=== PATIENT | male | born 1955 | race Caucasian/White ===

== ENCOUNTER 2016-06-21 17:05 | Emergency (ER) | payer OTHER ==
--- NOTE | 2016-06-21 17:46 | DIAGNOSTIC IMAGING REPORT ---
PROCEDURE: XR CHEST 1 VIEW INDICATION: Chest pain. TECHNIQUE: Portable AP view (1730 hours). COMPARISON: None. FINDINGS: Allowing for overlying wires and electrodes and lordotic positioning,, lungs are clear. Heart and mediastinum are normal. Mild degenerative changes of the thoracic spine. IMPRESSION: 1. Negative chest.
--- NOTE | 2016-06-21 18:45 | ED ORDER SUMMARY ---
..... Patient: RANDI SCHAFER OrderSheet [facility] VisitID: [id number] [place] [address] 61y, M Registration Date/Time: 06/21/2016 ORDER SHEET Weight: 67.1 kg (stated) Allergies: None GENERAL ORDERS: Chest 1V Urgent (17:06/21/2016 Hyun Ruiz) (Ack 17:35 Mindy) (17:59 KKnebel R.N.) Technician Helper Instrument (Continuous) (CP) (:06/21/2016 Hyun Ruiz) (17:58 KKnebel R.N.) CBC w Diff Urgent (:06/21/2016 Hyun Ruiz) (Ack 17:35 Mindy) (17:58 KKnebel R.N.) CMP Urgent (:06/21/2016 Hyun Ruiz) (Ack 17:35 Midny) (17:58 KKnebel R.N.) UA-Culture if indicated Urgent (:06/21/2016 Hyun Ruiz) (Ack 17:35 Mindy) (19:53 KKnebel R.N.) PT with INR Urgent (:06/21/2016 Hyun Ruiz) (Ack 17:35 Mindy) (17:59 KKnebel R.N.) D-Dimer Urgent (:06/21/2016 Hyun Ruiz) (Ack 17:35 Mindy) (17:59 KKnebel R.N.) Troponin-I Urgent (:06/21/2016 Hyun Ruiz) (Ack 17:35 Mindy) (17:59 KKnebel R.N.) BNP Urgent (:06/21/2016 Hyun Ruiz) (Ack 17:35 Mindy) (17:59 KKnebel R.N.) Urine Drug Screen Urgent (:06/21/2016 Hyun Ruiz) (Ack 17:35 Mindy) (19:53 KKnebel R.N.) Pulse oximeter (:06/21/2016 Hyun Ruiz) (17:58 Vanessa R.N.) MEDICATION ORDERS: Azithromycin PO 500 mg (NOW) (18:43 06/21/2016 Hyun Ruiz) (18:56 Vanessa R.N.) IV FLUIDS: Morphine IV 4 mg (HIGH ALERT MEDICATION, NOW) (17:25 06/21/2016 Hyun Ruiz) (17:58 Vanessa Mercado.N.) IV Saline Lock (17:06/21/2016 Hyun Ruiz) (17:55 Vanessa R.N.) ORDER SHEET NOTES: [Electronically signed by Heidi Carballo R.N. (19:54 06/21/2016)] [Electronically signed by Vito Puga Dr. (10:23 06/22/2016)] [Electronically locked/signed by Heidi Carballo R.N. (19:54 06/21/2016)]
--- NOTE | 2016-06-21 18:45 | ED NURSING NOTES ---
Clinical Report - Nurses [facility] [address] [place] [address] 06/21/2016 17:06 Patient: RANDI SCHAFER TRIAGE Triage time 17:14 Jun 21 2016. Acuity: LEVEL 2. Chief Complaint: CHEST PAIN. Alert. No acute distress. --17:20 Heidi Carballo R.N. 17:14 06/21/16. BP: 125/44. HR: 116. RR: 14. O2 saturation: 92%. Temp: 98.8 F. Pain level now: 09/26. --17:20 Heidi Carballo R.N. Weight: 67.1 kg stated. Height/Length: 72 inches Per Patient. BMI: 20.1. --17:23 Heidi Carballo R.N. Medications Albuterol Sulfate ER Oral. Combivent Respimat Inhalation. --17:16 Heidi Carballo R.N. Nebulizers. --17:16 Heidi Carballo R.N. INHALER . --17:16 Heidi Carballo R.N. Allergies None. --17:15 Heidi Carballo R.N. History Arrived by private vehicle. Historian: patient. Accompanied by family and (sister). Onset. (about 6 days ago). He has had difficulty breathing. PAST MEDICAL HX: Lung disease. Immunizations: up-to-date. SOCIAL HX: Current every day heavy tobacco smoker (cigarette)- less than 1 pack per day. Does not smoke more than 2 packs per day. No alcohol use or drug use. No infectious disease exposure. SELF HARM ASSESSMENT: A self harm assessment was performed. The patient answered "no" to the question "Do you have thoughts of harming or killing yourself?". FALL RISK ASSESSMENT: Fall risk assessment completed. No fall risk identified. NUTRITIONAL RISK ASSESSMENT: The nutritional risk assessment revealed no deficiencies. FUNCTIONAL ASSESSMENT: Functional assessment: no impairments noted. LEARNING NEEDS ASSESSMENT: The learning needs assessment revealed no barriers. ABUSE ASSESSMENT: Abuse assessment: The patient was asked "Do you feel safe in your home?". SKIN INTEGRITY ASSESSMENT: Skin integrity risk assessment completed. No skin integrity risk identified. --17:20 Heidi Carballo R.N. PROBLEMS: COPD - Chronic Obstructive Pulmonary Disease. Asthma. RSD. --17:17 Heidi Carballo R.N. ADDITIONAL SURGERIES: Hip Surgery. --17:17 Heidi Carballo R.N. Ulner. --17:18 Heidi Carballo R.N. Interventions ID band on patient. To room. --17:20 Heidi Carballo R.N. PHYSICAL ASSESSMENT To room via wheelchair. GENERAL / NEURO / PSYCH: Alert. Oriented X 4. Appears in pain. RESPIRATORY: Respirations not labored. CVS: Capillary refill is greater than 2 seconds. GI / : Abdomen soft. EXTREMITIES: Lower extremity edema. SKIN: Skin is warm and dry. --17:21 Heidi Carballo R.N. NURSING PROGRESS NOTES Monitoring of patient in place. Patient gowned. Head of bed elevated. Two patient identifiers checked. Call light placed in reach. Side rails up x 1. Bed placed in lowest position. Brakes of bed on. --17:24 Heidi Carballo R.N. 17:25 06/21/2016 Site #1 started via IV in the right antecubital space with an 20g angiocath, with aseptic technique and good blood return; one attempt. Blood drawn: rainbow set. Labeled in the presence of the patient and sent to the lab. Saline lock flushed with 10 mL saline. --17:25 Heidi Carballo R.N. 17:58 06/21/2016 Morphine IVP 4 mg given over 2 minute(s) via site #1. Allergies verified, confirmed 5 rights and sedative warning given to the patient. IV patency established. IV site checked: no pain, redness, or swelling. IV flushed thoroughly pre- and post-medication administration. --17:58 Heidi Carballo R.N. 18:56 06/21/2016 Azithromycin PO Tablets 500 mg given. Allergies verified and confirmed 5 rights. --18:56 Heidi Carballo R.N. 19:22 06/21/16. ( pt unable to provide urine sample - MD RAMIREZ with discharging pt without it.). --19:52 Heidi Carballo R.N. 19:23 06/21/2016 Site #1 removed upon discharge. Bandage applied. --19:23 Heidi Carballo R.N. DISPOSITION / DISCHARGE Departure time: :Jun 21 2016. Condition at departure: improved. No learning barriers present. Discharge instructions provided and reviewed with the patient. Reviewed medication(s) side effects, precautions, dosing and course information. Reviewed referral to a primary care physician. Patient verbalized understanding. Written instructions provided in [place]. The patient was discharged home and accompanied by spouse. He left the Emergency Department ambulatory and via private vehicle. Family member driving (sister will be picking up pt.). --19:22 Heidi Carballo R.N. 19:17 06/21/16. BP: 105/42. HR: 98. RR: 16. O2 saturation: 92%. Pain level now: 11/27. --19:22 Heidi Carballo R.N. Locked/Released at 06/21/2016 19:54 by Heidi Carballo R.N.
--- NOTE | 2016-06-21 18:45 | ED ORDER SUMMARY ---
..... Patient: RANDI SCHAFER OrderSheet [facility] VisitID: [id number] [place] [address] 61y, M Registration Date/Time: 06/21/2016 ORDER SHEET Weight: 67.1 kg (stated) Allergies: None GENERAL ORDERS: Chest 1V Urgent (17:06/21/2016 Hyun Ruiz) (Ack 17:35 Mindy) (17:59 KKnebel R.N.) Director Of Managed Care (Continuous) (CP) (:06/21/2016 Hyun Ruiz) (17:58 KKnebel R.N.) CBC w Diff Urgent (:06/21/2016 Hyun Ruiz) (Ack 17:35 Mindy) (17:58 KKnebel R.N.) CMP Urgent (:06/21/2016 Hyun Ruiz) (Ack 17:35 Mindy) (17:58 KKnebel R.N.) UA-Culture if indicated Urgent (:06/21/2016 Hyun Ruiz) (Ack 17:35 Mindy) (19:53 KKnebel R.N.) PT with INR Urgent (:06/21/2016 Hyun Ruiz) (Ack 17:35 Mindy) (17:59 KKnebel R.N.) D-Dimer Urgent (:06/21/2016 Hyun Ruiz) (Ack 17:35 Mindy) (17:59 KKnebel R.N.) Troponin-I Urgent (:06/21/2016 Hyun Ruiz) (Ack 17:35 Mindy) (17:59 KKnebel R.N.) BNP Urgent (:06/21/2016 Hyun Ruiz) (Ack 17:35 Mindy) (17:59 KKnebel R.N.) Urine Drug Screen Urgent (:06/21/2016 Hyun Ruiz) (Ack 17:35 Mindy) (19:53 KKnebel R.N.) Pulse oximeter (:06/21/2016 Hyun Ruiz) (17:58 Vanessa R.N.) MEDICATION ORDERS: Azithromycin PO 500 mg (NOW) (18:43 06/21/2016 Hyun Ruiz) (18:56 Vanessa R.N.) IV FLUIDS: Morphine IV 4 mg (HIGH ALERT MEDICATION, NOW) (17:25 06/21/2016 Hyun Ruiz) (17:58 Vanessa Mercado.N.) IV Saline Lock (17:06/21/2016 Hyun Ruiz) (17:55 Vanessa R.N.) ORDER SHEET NOTES: [Electronically signed by Heidi Carballo R.N. (19:54 06/21/2016)] [Electronically signed by Vito Puga Dr. (10:23 06/22/2016)] [Electronically locked/signed by Heidi Carballo R.N. (19:54 06/21/2016)]
--- NOTE | 2016-06-21 18:45 | ED CLINICAL REPORT ---
Clinical Report - Physicians/Mid Levels [facility] [address] [place] [address] 06/21/2016 17:06 Patient: RANDI SCHAFER Time Seen: 1720. Arrived- By private vehicle. Historian- patient. HISTORY OF PRESENT ILLNESS Chief Complaint: CHEST PAIN. It is described as located in the central chest area. No radiation. This started past 4 days and is still present. It was abrupt in onset and has been constant but is not gone now. Onset during rest. At its maximum, severity described as moderate. Modifying factors- worsened by deep breaths. Relieved by rest. No nausea, vomiting, difficulty breathing or diaphoresis. (patient having a productive cough of green sputum. Patient reports increasing in pain with deep inspiration). No additional chest pain. Similar symptoms previously: None. REVIEW OF SYSTEMS No fever, chills or skin rash. All systems otherwise negative, except as recorded above. PAST HISTORY See nurses notes. Medications: INHALER . Nebulizers. Albuterol Sulfate ER Oral. Combivent Respimat Inhalation. Allergies: None. SOCIAL HISTORY Smoker- current status unknown. No alcohol use or drug use. No recent travel. Is a local resident. ADDITIONAL NOTES The nursing notes have been reviewed. PHYSICAL EXAM Vital Signs: 06/21/2016 17:14 BP: 125/44. HR: 116. RR: 14. O2 saturation: 92%. Temp: 98.8 F. Pain level now: 7/10. Blood pressure normal. Oxygen saturation normal. Appearance: Alert. Oriented X3. No acute distress. (full jiang harper. polite, cooperative, and nontoxic). Eyes: Pupils equal, round and reactive to light. Eyes normal inspection. ENT: Ears normal. Nose normal. Pharynx normal. Neck: Normal inspection. Neck supple. CVS: Normal heart rate and rhythm. Heart sounds normal. Pulses normal. Respiratory: No respiratory distress. Breath sounds normal. Chest nontender. Abdomen: Soft and nontender. Bowel sounds normal. No mass. Back: Normal external inspection. Skin: Skin warm and dry. Normal skin color. No rash. Normal skin turgor. Extremities: Extremities exhibit normal ROM. No lower extremity edema. LABS, X-RAYS, AND EKG EKG: No acute ischemia. Tachycardia. Sinus tachycardia. Normal P waves. Normal RYLIE. Normal QRS complex. Normal axis. Normal ST and T waves, QT and QTc. Sinus tachycardia. Prior EKG unavailable. The study has been interpreted contemporaneously. The study has been independently viewed by me. The EKG appears to be a good tracing. Chest X-ray: No acute disease. Normal heart size. Mediastinum normal. Great vessels normal. No infiltrate. Views: PA. The X-rays were independently viewed by me and interpreted by the radiologist. The X-rays were discussed with the radiologist (Via PACS). Laboratory Tests: CBC w Diff: (HILLARY: 06/21/2016 16:05) ( MsgRcvd 06/21/2016 17:33) Final results Test Result Flag Units (Reference) WHITE BLOOD COUNT 12.6 H K/uL (4.5-11.5) RED BLOOD COUNT 4.59 M/uL (4.50-5.90) HEMOGLOBIN 12.6 L gm/dL (13.5-17.5) HEMATOCRIT 38.3 L % (41.0-53.0) MEAN CELL VOLUME 83 fL (80-100) MEAN CORPUSCULAR HGB 28 pg (26-34) MEAN CORPUSCULAR HGB CONC 33 g/dL (31-37) RED CELL DISTRIBUTION WIDTH 14.7 % (11.6-14.8) PLATELET COUNT 221 K/uL (150-400) NEUTROPHIL % 72.5 % (50-75) LYMPH % 15.1 L % (25-40) MONO % 11.8 % (3-14) EOSINOPHIL % 0.2 % (0-4) BASOPHIL % 0.4 % (0-2) PT with INR: (HILLARY: 06/21/2016 16:05) ( MsgRcvd 06/21/2016 17:45) Final results Test Result Flag Units (Reference) INR 1.1 (0.8-1.2) Low Intensity Therapy: INR 1.5-2.0 PT range 18.5-23.1Mod.Intensity Therapy: INR 2.0-3.0 PT range 23.1-31.5High Intensity Therapy: INR 2.5-3.5 PT range 27.4-35.5High Intensity Therapy 2: INR 3.0-4.0 PT range 31.5-39.3 D-DIMER QUANTITATIVE 0.38 ug/mLFEU (0.27-0.52) The primary value of this quantitative assay relates toits negative predictive value (i.e. exclusion) of pulmonaryembolism/deep vein thrombosis/DIC.Elevated levels of d-dimer may also occur with:, age, cancer, inflammation, liver disease,post-op, infection, hematoma, coronary disease, peripheralarteriopathy, bleeding disorders and thrombolytic treatment.Results should be correlated with other clinical andradiological data.Testing Methodology: Latex Immunoassay BNP: (HILLARY: 06/21/2016 16:05) ( NmgRcvd 06/21/2016 17:55) Final results Test Result Flag Units (Reference) B-TYPE NATRIURETIC PEPTIDE 29.2 pg/ml (5-100) CMP: (HILLARY: 06/21/2016 16:05) ( MsgRcvd 06/21/2016 17:58) Final results Test Result Flag Units (Reference) GLUCOSE 149 H mg/dL (70-110) BUN 21 H mg/dL (7-18) CREATININE 0.9 mg/dL (0.6-1.3) Estimated GFR >60 mL/min Estimated GFR- >60 mL/min Note: Persistent reduction over 3 months in eGFR<60 mL/min/1.73 m2 defines CKD. Patients with eGFR values>=60 mL/min/1.73 m2 may also have CKD if evidence ofpersistent proteinuria. Additional information may be foundat www.kidney.org. SODIUM 135 L mmol/L (136-145) POTASSIUM 3.5 mmol/L (3.5-5.1) CHLORIDE 97 L mmol/L (98-107) CARBON DIOXIDE 30 mmol/L (21-32) CALCIUM 9.0 mg/dL (8.5-10.1) TOTAL PROTEIN 7.8 g/dL (6.4-8.2) ALBUMIN 3.6 g/dL (3.3-5.0) BILIRUBIN, TOTAL 0.5 mg/dL (0.0-1.0) ALKALINE PHOSPHATASE 110 U/L (46-116) AST (SGOT) 20 U/L (15-37) ALT (SGPT) 26 U/L (12-78) TROPONIN I <0.05 ng/mL (0.00-1.5) TROPONIN REFERENCE RANGE:<0.1 NEGATIVE0.1-1.5 INDETERMINANT>1.5 POSITIVE . PROGRESS AND PROCEDURES Course of Care: the patient is a pleasant 61-year-old male presenting for evaluation of chest pain and shortness of breath. The patient reports having a productive cough. Bronchitis versus pneumonia versus COPD versus acute myocardial infarction versus thoracic aortic dissection versus pulmonary embolism is a typeis at this time. Patient is resting in bed and in no acute distress. Patient reports that he is tachycardic be is having a breathing treatment earlier prior to arrival. Had a discussion with patient in regards to symptoms here in the emergency department. Patient reports that he has a history of heroin use for chronic pain but does not want this to be on his record. Medications and laboratory studies including chest x-ray and EKG have been ordered. Patient is agreeable to treatment plan. Labs or studies including d-dimer and troponin been ordered. Because of the patient's time course of his illness, do not feel patient needs a delta troponin. Single troponin would be sufficient given the patient's onset of pain further greater than 8 hours. If the patient's d-dimer is also noted to be normal, do not fill patient has pulmonary embolism or thoracic dissection. Patient's chest x-rays noted to have no acute infiltrates. Troponin is noted to be negative. The patient's d-dimer is also noted to be normal. Patient is sleeping and in no acute distress while here in the emergency department. because of the patient's negative workup, do not fill patient is admitted to the hospital. Feel the patient's symptoms are likely due to bronchitis given the patient's symptoms of upper respiratory tract findings as well as productive cough. Patient with history of smoking. Patient will likely benefit from course of antibiotics. Patient is agreeable to the treatment plan. Patient is not wheezing on examination while here in the emergency department and has declined offers of refills of his medication for his COPD as well as medications here for his breathing. Because the patient is not having any wheezing all here in the emergency department and as having good air movement throughout his lungs, do not feel patient would benefit from steroids and believe the risks outweigh the benefits at this time. Disposition: Discharged. Condition: good. CLINICAL IMPRESSION Atypical chest pain .12 lead EKG performed. (acute). Acute bacterial bronchitis. acute leukocytosis. INSTRUCTIONS Warnings: GENERAL WARNINGS: Return or contact your physician immediately if your condition worsens or changes unexpectedly, if not improving as expected, or if other problems arise. SPECIFICALLY, return if you develop chest, neck, jaw, shoulder, arm, or back pain, difficulty breathing, a fluttering sensation in your chest, lightheadedness, fainting, excessive fatigue, or sudden sweating. Your Current Medications: CONTINUE TAKING THE FOLLOWING MEDICATIONS: Albuterol Sulfate ER Oral. Combivent Respimat Inhalation. INHALER *. Nebulizers*. Prescription Medications: Zithromax Z-Lito: Take according to package instructions take 1 orally. No refills. Substitution is permissible. Follow-up: Return to the emergency department as needed. Follow up with your doctor. Reason for referral: recheck today's concerns. Screening today revealed the patient's blood pressure to be in the normal range. The patient should follow up with a primary care provider for blood pressure management. Understanding of the discharge instructions verbalized by patient. Follow-up with: [facility], , [address] [place] [address], [address] [place] [address] Follow up in three days. Reason for referral: recheck today's concerns. Summary of care provided to patient via paper. (Electronically signed by Vito Puga Dr. 06/22/2016 10:23)
--- NOTE | 2016-06-22 10:23 | ED MAR SUMMARY ---
..... Medication Administration Record [facility] [address] [place] [address] Patient: RANDI SCHAFER Visit ID: [id number] 61y, M Weight: 67.1 kg Height/Length: 72 in BMI: 20.1 ALLERGIES: None Given 17:58 06/21/2016 Heidi Carballo, RJoce Medication Administered: MORPHINE [IVP], Dose: 4 mg IVP over 2 minute(s), Site: #1 right AC. Medication Ordered: Morphine IV 4 mg (HIGH ALERT MEDICATION, NOW). Given 18:56 06/21/2016 Heidi Carballo, RHansNHans Medication Administered: AZITHROMYCIN [PO], Dose: 500 mg Tablets PO. Medication Ordered: Azithromycin PO 500 mg (NOW).
--- NOTE | 2016-06-22 10:23 | ED MAR SUMMARY ---
..... Medication Administration Record [facility] [address] [place] [address] Patient: RANDI SCHAFER Visit ID: [id number] 61y, M Weight: 67.1 kg Height/Length: 72 in BMI: 20.1 ALLERGIES: None Given 17:58 06/21/2016 Heidi Carballo, RJoce Medication Administered: MORPHINE [IVP], Dose: 4 mg IVP over 2 minute(s), Site: #1 right AC. Medication Ordered: Morphine IV 4 mg (HIGH ALERT MEDICATION, NOW). Given 18:56 06/21/2016 Heidi Carballo, RHansNHans Medication Administered: AZITHROMYCIN [PO], Dose: 500 mg Tablets PO. Medication Ordered: Azithromycin PO 500 mg (NOW).
--- NOTE | 2016-06-22 10:23 | ED DISCHARGE INSTRUCTIONS ---
Patient: RANDI SCHAFER General Instructions [facility] VisitID: [id number] [place] [address] 61y, M Registration Date/Time: 06/21/2016 Atypical chest pain .12 lead EKG performed. (acute). Acute bacterial bronchitis. acute leukocytosis. INSTRUCTIONS Warnings: GENERAL WARNINGS: Return or contact your physician immediately if your condition worsens or changes unexpectedly, if not improving as expected, or if other problems arise. SPECIFICALLY, return if you develop chest, neck, jaw, shoulder, arm, or back pain, difficulty breathing, a fluttering sensation in your chest, lightheadedness, fainting, excessive fatigue, or sudden sweating. Your Current Medications: CONTINUE TAKING THE FOLLOWING MEDICATIONS: Albuterol Sulfate ER Oral. Combivent Respimat Inhalation. INHALER *. Nebulizers*. Prescription Medications: Zithromax Z-Lito: Take according to package instructions take 1 orally. No refills. Substitution is permissible. Follow-up: Return to the emergency department as needed. Follow up with your doctor. Reason for referral: recheck today's concerns. Screening today revealed the patient's blood pressure to be in the normal range. The patient should follow up with a primary care provider for blood pressure management. Understanding of the discharge instructions verbalized by patient. Follow-up with: [facility], [facility], , [address] [place] [address], [id number] [id number] Follow up in three days. Reason for referral: recheck today's concerns. Summary of care provided to patient via paper. ADDITIONAL INFORMATION Chest Pain, Uncertain Cause Chest pain can happen for a number of reasons. Sometimes the cause can not be determined. If yourcondition does not seem serious, and your pain does not appear to be coming from your heart, your doctor may recommend watching it closely. Sometimes the signs of a serious problem take more time to appear. Therefore, watch for the warning signs listed below. Home care After your visit, follow these recommendations: Rest today and avoid strenuous activity. Take any prescribed medicine as directed. Follow-up care Follow up with your doctor or this facility as instructed or if you do not start to feel better within 24 hours. Call 911 Get immediate medical attention if any of the following occur: A change in the type of pain: if it feels different, becomes more severe, lasts longer, or begins to spread into your shoulder, arm, neck, jaw or back Shortness of breath or increased pain with breathing Weakness, dizziness, or fainting Rapid heart beat Get prompt medical attention Call your doctor right away if any of the following occur: Cough with dark colored sputum (phlegm) or blood Fever of 100.4F(38C) or higher, or as directed by your health care provider Swelling, pain or redness in one leg Bronchitis (Adult: Abx Tx) BRONCHITIS is an infection of the air passages (bronchial tubes). It often occurs during the common cold. Symptoms include cough with mucus (phlegm) and low-grade fever. Bronchitis usually lasts 7-14 days. Mild cases can be treated with simple home remedies. More severe infection is treated with an antibiotic. Home Care: If symptoms are severe, rest at home for the first 2-3 days. When you resume activity, don't let yourself get too tired. Do not smoke. Avoid being exposed to the smoke of others. You may use acetaminophen (Tylenol) or ibuprofen (Motrin, Advil) to control fever or pain, unless another medicine was prescribed for this. [NOTE: If you have chronic liver or kidney disease or ever had a stomach ulcer or GI bleeding, talk with your doctor before using these medicines.] Your appetite may be poor, so a light diet is fine. Avoid dehydration by drinking 6-8 glasses of fluids per day (water, soft, drinks, juices, tea, soup, etc.). Extra fluids will help loosen secretions in the lungs. Qgoh-fvq-bzihrxz cough medicines that containdextromethorphan(such as Robitussin DM) and decongestants (Actifed or Sudafed) may help relieve cough and congestion. [NOTE: Do not use decongestants if you have high blood pressure.] Finish all antibiotic medicine, even if you are feeling better after only a few days. Follow Up with your doctor or as directed if you dont start to feel better after three days. [NOTE: If you are age 65 or older, or if you have chronic asthma or COPD, we recommend a PNEUMOCOCCAL VACCINATION every five years and a yearly INFLUENZAVACCINATION (FLU-SHOT) every . Ask your doctor about this. If you had an X-ray, a radiologist will review it. You will be notified of any new findings that may affect your care.] Get Prompt Medical Attention if any of the following occur: Fever over 100.4F (38.0C) for more than three days Trouble breathing, wheezing or pain with breathing Coughing up blood or increased amounts of colored sputum Weakness, drowsiness, headache, facial pain, ear pain or a stiff neck Azithromycin Oral tablet What is this medicine? AZITHROMYCIN (az ith abdon DEL ANGEL sin) is a macrolide antibiotic. It is used to treat or prevent certain kinds of bacterial infections. It will not work for colds, flu, or other viral infections. How should I use this medicine? Take this medicine by mouth with a full glass of water. Follow the directions on the prescription label. The tablets can be taken with food or on an empty stomach. If the medicine upsets your stomach, take it with food. Take your medicine at regular intervals. Do not take your medicine more often than directed. Take all of your medicine as directed even if you think your are better. Do not skip doses or stop your medicine early. Talk to your quote clerk regarding the use of this medicine in children. Special care may be needed. What side effects may I notice from receiving this medicine? Side effects that you should report to your doctor or health career and guidance counselor as soon as possible: allergic reactions like skin rash, itching or hives, swelling of the face, lips, or tongue confusion, nightmares or hallucinations dark urine difficulty breathing hearing loss irregular heartbeat or chest pain pain or difficulty passing urine redness, blistering, peeling or loosening of the skin, including inside the mouth white patches or sores in the mouth yellowing of the eyes or skin Side effects that usually do not require medical attention (report to your doctor or health career and guidance counselor if they continue or are bothersome): diarrhea dizziness, drowsiness headache stomach upset or vomiting tooth discoloration vaginal irritation What may interact with this medicine? Do not take this medicine with any of the following medications: lincomycin This medicine may also interact with the following medications: amiodarone antacids cyclosporine digoxin magnesium nelfinavir phenytoin warfarin What if I miss a dose? If you miss a dose, take it as soon as you can. If it is almost time for your next dose, take only that dose. Do not take double or extra doses. Where should I keep my medicine? Keep out of the reach of children. Store at room temperature between 15 and 30 degrees C (59 and 86 degrees F). Throw away any unused medicine after the expiration date. What should I tell my health care provider before I take this medicine? They need to know if you have any of these conditions: kidney disease liver disease irregular heartbeat or heart disease an unusual or allergic reaction to azithromycin, erythromycin, other macrolide antibiotics, foods, dyes, or preservatives or trying to get breast-feeding What should I watch for while using this medicine? Tell your doctor or health career and guidance counselor if your symptoms do not improve. Do not treat diarrhea with over the counter products. Contact your doctor if you have diarrhea that lasts more than 2 days or if it is severe and watery. This medicine can make you more sensitive to the sun. Keep out of the sun. If you cannot avoid being in the sun, wear protective clothing and use sunscreen. Do not use sun lamps or tanning beds/booths. You have been given the following additional information: Chest Pain, Uncertain Cause Bronchitis, Antiobiotic Treatment (Adult) Azithromycin Oral tablet (Electronically signed by Vito Puga Dr. 06/22/2016 10:23)
--- NOTE | 2016-06-22 10:23 | ED DISCHARGE INSTRUCTIONS ---
Patient: RANDI SCHAFER General Instructions [facility] VisitID: [id number] [place] [address] 61y, M Registration Date/Time: 06/21/2016 Atypical chest pain .12 lead EKG performed. (acute). Acute bacterial bronchitis. acute leukocytosis. INSTRUCTIONS Warnings: GENERAL WARNINGS: Return or contact your physician immediately if your condition worsens or changes unexpectedly, if not improving as expected, or if other problems arise. SPECIFICALLY, return if you develop chest, neck, jaw, shoulder, arm, or back pain, difficulty breathing, a fluttering sensation in your chest, lightheadedness, fainting, excessive fatigue, or sudden sweating. Your Current Medications: CONTINUE TAKING THE FOLLOWING MEDICATIONS: Albuterol Sulfate ER Oral. Combivent Respimat Inhalation. INHALER *. Nebulizers*. Prescription Medications: Zithromax Z-Lito: Take according to package instructions take 1 orally. No refills. Substitution is permissible. Follow-up: Return to the emergency department as needed. Follow up with your doctor. Reason for referral: recheck today's concerns. Screening today revealed the patient's blood pressure to be in the normal range. The patient should follow up with a primary care provider for blood pressure management. Understanding of the discharge instructions verbalized by patient. Follow-up with: [facility], [facility], , [address] [place] [address], [id number] [id number] Follow up in three days. Reason for referral: recheck today's concerns. Summary of care provided to patient via paper. ADDITIONAL INFORMATION Chest Pain, Uncertain Cause Chest pain can happen for a number of reasons. Sometimes the cause can not be determined. If yourcondition does not seem serious, and your pain does not appear to be coming from your heart, your doctor may recommend watching it closely. Sometimes the signs of a serious problem take more time to appear. Therefore, watch for the warning signs listed below. Home care After your visit, follow these recommendations: Rest today and avoid strenuous activity. Take any prescribed medicine as directed. Follow-up care Follow up with your doctor or this facility as instructed or if you do not start to feel better within 24 hours. Call 911 Get immediate medical attention if any of the following occur: A change in the type of pain: if it feels different, becomes more severe, lasts longer, or begins to spread into your shoulder, arm, neck, jaw or back Shortness of breath or increased pain with breathing Weakness, dizziness, or fainting Rapid heart beat Get prompt medical attention Call your doctor right away if any of the following occur: Cough with dark colored sputum (phlegm) or blood Fever of 100.4F(38C) or higher, or as directed by your health care provider Swelling, pain or redness in one leg Bronchitis (Adult: Abx Tx) BRONCHITIS is an infection of the air passages (bronchial tubes). It often occurs during the common cold. Symptoms include cough with mucus (phlegm) and low-grade fever. Bronchitis usually lasts 7-14 days. Mild cases can be treated with simple home remedies. More severe infection is treated with an antibiotic. Home Care: If symptoms are severe, rest at home for the first 2-3 days. When you resume activity, don't let yourself get too tired. Do not smoke. Avoid being exposed to the smoke of others. You may use acetaminophen (Tylenol) or ibuprofen (Motrin, Advil) to control fever or pain, unless another medicine was prescribed for this. [NOTE: If you have chronic liver or kidney disease or ever had a stomach ulcer or GI bleeding, talk with your doctor before using these medicines.] Your appetite may be poor, so a light diet is fine. Avoid dehydration by drinking 6-8 glasses of fluids per day (water, soft, drinks, juices, tea, soup, etc.). Extra fluids will help loosen secretions in the lungs. Ehbb-vij-vqlreoz cough medicines that containdextromethorphan(such as Robitussin DM) and decongestants (Actifed or Sudafed) may help relieve cough and congestion. [NOTE: Do not use decongestants if you have high blood pressure.] Finish all antibiotic medicine, even if you are feeling better after only a few days. Follow Up with your doctor or as directed if you dont start to feel better after three days. [NOTE: If you are age 65 or older, or if you have chronic asthma or COPD, we recommend a PNEUMOCOCCAL VACCINATION every five years and a yearly INFLUENZAVACCINATION (FLU-SHOT) every . Ask your doctor about this. If you had an X-ray, a radiologist will review it. You will be notified of any new findings that may affect your care.] Get Prompt Medical Attention if any of the following occur: Fever over 100.4F (38.0C) for more than three days Trouble breathing, wheezing or pain with breathing Coughing up blood or increased amounts of colored sputum Weakness, drowsiness, headache, facial pain, ear pain or a stiff neck Azithromycin Oral tablet What is this medicine? AZITHROMYCIN (az ith abdon DEL ANGEL sin) is a macrolide antibiotic. It is used to treat or prevent certain kinds of bacterial infections. It will not work for colds, flu, or other viral infections. How should I use this medicine? Take this medicine by mouth with a full glass of water. Follow the directions on the prescription label. The tablets can be taken with food or on an empty stomach. If the medicine upsets your stomach, take it with food. Take your medicine at regular intervals. Do not take your medicine more often than directed. Take all of your medicine as directed even if you think your are better. Do not skip doses or stop your medicine early. Talk to your houseman regarding the use of this medicine in children. Special care may be needed. What side effects may I notice from receiving this medicine? Side effects that you should report to your doctor or health respiratory care instructor as soon as possible: allergic reactions like skin rash, itching or hives, swelling of the face, lips, or tongue confusion, nightmares or hallucinations dark urine difficulty breathing hearing loss irregular heartbeat or chest pain pain or difficulty passing urine redness, blistering, peeling or loosening of the skin, including inside the mouth white patches or sores in the mouth yellowing of the eyes or skin Side effects that usually do not require medical attention (report to your doctor or health respiratory care instructor if they continue or are bothersome): diarrhea dizziness, drowsiness headache stomach upset or vomiting tooth discoloration vaginal irritation What may interact with this medicine? Do not take this medicine with any of the following medications: lincomycin This medicine may also interact with the following medications: amiodarone antacids cyclosporine digoxin magnesium nelfinavir phenytoin warfarin What if I miss a dose? If you miss a dose, take it as soon as you can. If it is almost time for your next dose, take only that dose. Do not take double or extra doses. Where should I keep my medicine? Keep out of the reach of children. Store at room temperature between 15 and 30 degrees C (59 and 86 degrees F). Throw away any unused medicine after the expiration date. What should I tell my health care provider before I take this medicine? They need to know if you have any of these conditions: kidney disease liver disease irregular heartbeat or heart disease an unusual or allergic reaction to azithromycin, erythromycin, other macrolide antibiotics, foods, dyes, or preservatives or trying to get breast-feeding What should I watch for while using this medicine? Tell your doctor or health respiratory care instructor if your symptoms do not improve. Do not treat diarrhea with over the counter products. Contact your doctor if you have diarrhea that lasts more than 2 days or if it is severe and watery. This medicine can make you more sensitive to the sun. Keep out of the sun. If you cannot avoid being in the sun, wear protective clothing and use sunscreen. Do not use sun lamps or tanning beds/booths. You have been given the following additional information: Chest Pain, Uncertain Cause Bronchitis, Antiobiotic Treatment (Adult) Azithromycin Oral tablet (Electronically signed by Vito Puga Dr. 06/22/2016 10:23)
--- NOTE | 2016-06-22 10:24 | ED MED RECONCILIATION SUMMARY ---
Patient: RANDI SCHAFER Medication Reconciliation Report [facility] VisitID: [id number] [place] [address] 61y, M Registration Date/Time: 06/21/2016 Weight: 67.1 kg Height/Length: 72 in. BMI: 20.1 ALLERGIES: None The patient's Home Medications are listed below: CONTINUE TAKING THE FOLLOWING MEDICATIONS: Albuterol Sulfate ER Oral Combivent Respimat Inhalation INHALER Nebulizers The source(s) of the original Home Medication information: Not obtained. The following Medications were given to the patient in the Emergency Department: Morphine [IVP] IVP 4 mg, administered: 06/21/2016 5:58:00 PM Azithromycin [PO] PO 500 mg, administered: 06/21/2016 6:56:00 PM The following Medications were prescribed to the patient: Zithromax Z-Lito: Take according to package instructions take 1 orally. No refills. Substitution is permissible. -- Vito Puga Dr.
--- NOTE | 2016-06-22 10:24 | ED MED RECONCILIATION SUMMARY ---
Patient: RANDI SCHAFER Medication Reconciliation Report [facility] VisitID: [id number] [place] [address] 61y, M Registration Date/Time: 06/21/2016 Weight: 67.1 kg Height/Length: 72 in. BMI: 20.1 ALLERGIES: None The patient's Home Medications are listed below: CONTINUE TAKING THE FOLLOWING MEDICATIONS: Albuterol Sulfate ER Oral Combivent Respimat Inhalation INHALER Nebulizers The source(s) of the original Home Medication information: Not obtained. The following Medications were given to the patient in the Emergency Department: Morphine [IVP] IVP 4 mg, administered: 06/21/2016 5:58:00 PM Azithromycin [PO] PO 500 mg, administered: 06/21/2016 6:56:00 PM The following Medications were prescribed to the patient: Zithromax Z-Lito: Take according to package instructions take 1 orally. No refills. Substitution is permissible. -- Vito Puga Dr.
== END 2016-06-21 19:22 | disposition home or self-care (01) ==
LOC: ED SRH 17:05
DX: R07.9 Chest pain, unspecified (principal); J20.9 Acute bronchitis, unspecified; D72.829 Elevated white blood cell count, unspecified; F17.210 Nicotine dependence, cigarettes, uncomplicated
CPT/HCPCS: 90100; 90616; 91320; 91556; 94060; 95059